=== PATIENT | female | born 1970 | race Caucasian/White ===

== ENCOUNTER 2024-10-27 11:58 | Emergency (ER) | payer MEDICAID, SELFPAY ==
[2024-10-27 12:11] VITALS: PULSE 78; RESP 18; O2SAT 98
[2024-10-27 12:19] VITALS: BP 116/76; PULSE 75; RESP 18; TEMP 36.8; O2SAT 100; BMI 24.3
--- NOTE | 2024-10-27 12:20 | EKG_ITS ---
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
--- NOTE | 2024-10-27 12:20 | XR_ITS ---
Examination: PA lateral chest 2 views TECHNIQUE: Upright PA lateral chest 2 views Exam date and time: October 27, 2024 1245 hours INDICATIONS: Shortness breath coughing today. FINDINGS: Normal heart size. Lungs are clear. The osseous structures are intact IMPRESSION: No active disease
--- NOTE | 2024-10-27 12:20 | PD.EDCHEST ---
ED Chest Pain RME/HPI General Stated Complaint: ANXIETY Time Seen by Provider: 10/27/24 12:40 Source: patient Arrival date/time: 10/27/24 11:58 53-year-old female with no known medical history presents to the emergency room with a chief complaint of 10 out of 10 sternal chest pain that does not radiate x 3 hours. Mode of arrival: ambulatory Limitations: no limitations Related Data Home Medications ?Medication ?Instructions ?Recorded ?Confirmed albuterol sulfate 90 mcg/actuation 2 puff inhalation Q6H PRN 08/11/20 08/11/20 aerosol inhaler Shortness Of Breath Or Wheezing atorvastatin 20 mg tablet 20 mg PO QDAY 08/11/20 08/11/20 baclofen 10 mg tablet 10 mg PO BID 08/11/20 08/11/20 loratadine 10 mg tablet 10 mg PO QDAY PRN Allergic Symptoms 08/11/20 08/11/20 meloxicam 15 mg tablet 15 mg PO DAILY 08/11/20 08/11/20 omeprazole 20 mg capsule,delayed 20 mg PO QDAY 08/11/20 08/11/20 release sertraline 50 mg tablet 50 mg PO QDAY 08/11/20 08/11/20 umeclidinium 62.5 mcg-vilanterol 1 inh inhalation QDAY 08/11/20 08/11/20 25 mcg/actuation powdr for inhalation (Anoro Ellipta) Previous Rx's ?Medication ?Instructions ?Recorded benzonatate 200 mg capsule 200 mg PO BID PRN cough #30 caps 01/01/22 methylprednisolone 4 mg tablets in See Rx Instructions .Route 01/01/22 a dose pack (Medrol (Daryn)) .COMPLEX #21 tabs doxycycline hyclate 100 mg capsule 100 mg PO BID #20 caps 08/30/22 montelukast 10 mg tablet 10 mg PO QPM #30 tabs 08/30/22 prednisone 20 mg tablet See Taper PO QDAY #14 tabs 08/30/22 ibuprofen 600 mg tablet 600 mg PO Q8H PRN fever or pain 10/27/24 #20 tabs Allergies Allergy/AdvReac Type Severity Reaction Status Date / Time codeine Allergy Severe Swelling Verified 10/27/24 12:15 of Lip/Tongue/Throat Penicillins Allergy Severe Swelling Verified 10/27/24 12:15 of Lip/Tongue/Throat NOVACAINE Allergy Severe Swelling Uncoded 05/31/24 07:48 of Lip/Tongue/Throat Review of Systems Review of Systems Systems Reviewed: All systems reviewed, normal except as documented Constitutional Constitutional: Reports system reviewed and no additional complaints, except as documented, Denies fatigue, Denies fever(s), Denies headache(s) and Denies weakness Eyes Eyes: Reports system reviewed and no additional complaints, except as documented, Denies blurry vision and Denies change in vision ENT Ears, Nose, Mouth, and Throat: Reports system reviewed and no additional complaints, except as documented, Denies otalgia, Denies headache(s), Denies nasal congestion, Denies throat swelling and Denies vertigo Cardiovascular Cardiovascular: Reports system reviewed and no additional complaints, except as documented, Reports chest pain, Denies dyspnea, Denies dyspnea on exertion and Reports rapid heart rate Respiratory Respiratory: Reports system reviewed and no additional complaints, except as documented, Denies chest congestion, Denies cough, Denies dyspnea, Denies dyspnea on exertion and Denies wheezing Gastrointestinal Gastrointestinal: Reports system reviewed and no additional complaints, except as documented, Denies abdominal pain, Denies cramping, Denies nausea and Denies vomiting Genitourinary Genitourinary: Reports system reviewed and no additional complaints, except as documented Musculoskeletal Musculoskeletal: Reports system reviewed and no additional complaints, except as documented and Denies back pain Integumentary/Breasts Skin/Breast: Reports system reviewed and no additional complaints, except as documented and Denies wounds Neurologic Neurologic: Reports system reviewed and no additional complaints, except as documented, Denies confusion, Denies headache(s), Denies lack of coordination, Denies vertigo and Denies weakness Psychiatric Psychiatric: Reports system reviewed and no additional complaints, except as documented, Denies anxiety, Denies confusion, Denies depression, Denies paranoia, Denies suicidal ideation and Denies tactile hallucinations Endocrine Endocrine: Reports system reviewed and no additional complaints, except as documented and Denies fatigue Hematologic/Lymphatic Hematologic/Lymphatic: Reports system reviewed and no additional complaints, except as documented and Denies lymphadenopathy Allergic/Immunologic Allergic/Immunologic: Reports system reviewed and no additional complaints, except as documented, Denies throat swelling, Denies urticaria and Denies wheezing Past Medical History Past Medical History CARDIAC: Positive Cardiac Disorders and Hypercholesterolemia; Negative Congestive Heart Failure RESPIRATORY: Positive Asthma; Negative Chronic Obstructive Pulmonary Disease (COPD) GASTROINTESTINAL: Positive Ulcer GENITOURINARY: Negative Renal Disease REPRODUCTIVE: Positive Pelvic Inflammatory Disease ENDOCRINE: Negative Diabetes Mellitus Type 1 or Diabetes Mellitus Type 2 HEMATOLOGIC: Negative Sickle Cell Disease PSYCHO/SOCIAL: Positive Depression and Anxiety Surgical History SURGICAL: Positive Abdominal Surgery Social History SMOKING STATUS: Former smoker SUBSTANCE USE: does not use ED Exam General Limitations: Present no limitations General appearance: Present alert and in no apparent distress Head Head exam: Present atraumatic Eye Eye exam: Present normal appearance, PERRL and EOMI ENT ENT exam: Present normal exam, normal oropharynx and mucous membranes moist Neck Neck exam: Present normal inspection, full ROM and trachea midline Chest Chest inspection: Present normal inspection and symmetric chest wall rise Respiratory Respiratory exam: Present normal lung sounds bilaterally; Absent respiratory distress, wheezes, stridor, accessory muscle use or prolonged expiratory phase Cardiovascular Cardiovascular exam: Present regular rate, normal rhythm and normal heart sounds; Absent bradycardia, tachycardia or irregular rhythm Abdominal Exam Abdominal exam: Present soft and normal bowel sounds Extremities Exam Extremities exam: Present normal inspection and full ROM Back Exam Back exam: Present normal inspection and full ROM Neurological Exam Neurological exam: Present alert, oriented X3 and CN II-XII intact Psychiatric Psychiatric exam: Present normal affect and normal mood Skin Skin exam: Present warm, dry, intact and normal color Course Quality Measures none Orders Category Date Time Status EKG (ED ONLY) *Do not use* NOW Care 10/27/24 12:20 Completed EKG (ED Only) Stat Exams 10/27/24 12:20 Draft XR chest 2V Stat Exams 10/27/24 12:20 Completed B-Type Natriuretic Peptide Stat Lab 10/27/24 13:16 Completed CBC Stat Lab 10/27/24 13:16 Completed Comprehensive Metabolic Panel Stat Lab 10/27/24 13:16 Completed Drug Screen,Urine Stat Lab 10/27/24 13:44 Received Magnesium Stat Lab 10/27/24 13:16 Completed Troponin I Stat Lab 10/27/24 13:16 Completed Urinalysis Stat Lab 10/27/24 13:44 Completed Vital Signs Vital signs: Vital Signs Temperature 98.2 F 10/27/24 12:19 Pulse Rate 75 10/27/24 12:19 Respiratory Rate 18 10/27/24 12:19 Blood Pressure 116/76 10/27/24 12:19 Pulse Oximetry (%) 100 10/27/24 12:19 Oxygen Delivery Method Room Air 10/27/24 12:19 O2 saturation within normal limits Procedures -ED EKG Interpretation #1: Date of EK10/27/24 Time of EK:00 Rate: 78 Interpretation: Reviewed by me EKG Impression: Normal sinus rhythm Additional EKG comment: EKG shows normal sinus rhythm at [address] deviation Chest Pain MDM Narrative MDM Narrative:: 53-year-old female with no known medical history presents to the emergency room with a chief complaint of 10 out of 10 sternal chest pain that does not radiate x 3 hours. Clinically the patient appears nontoxic and in no apparent distress. The patient is not tachycardic not tachypneic afebrile and O2 saturation is 100 on room air Lung sounds are clear bilaterally the patient is complaining of 10 out of 10 sternal chest pain. Heart sounds are strong and regular S1 and S2 noted no murmurs. EKG shows normal sinus rhythm at [address] deviation. Chest x-ray was negative for any pneumonic infiltrates. Patient was discharged and educated to follow-up with primary care provider and return to the emergency room for any evidence of worsening signs or symptoms Patient data External records reviewed:: [facility] previous records Clinical information provided by:: patient Social determinants that could affect healthcare access:: none Patient has the following chronic illnesses:: No chronic illness How is presenting disease/condition affected by chronic disease/condition?: no chronic disease Evaluation data The following diagnostics were reviewed and interpreted by me:: lab results and radiology exam(s) Lab and/or radiology exams considered but not ordered:: Labs and radiology exams considered and ordered Interpretation Summary: Chest [id number]: Normal heart size. Lungs are clear. The osseous structures are intact IMPRESSION: No active disease Medications / Prescriptions Medications or Prescriptions considered but not ordered:: No medication given Medication administrations:: No medication given Consultations Consultation(s) initiated? (list below): No Diagnosis Chest Pain Differential Diagnosis: stable angina, atypical chest pain, st elevation myocardial infarction, costochondritis and chest pain Most likely diagnosis given after review of the tests above:: Costochondritis Admission Indicated Admission indicated?: not indicated Admission Request Was there a request for admission?: No Disposition Plan Disposition Plan: Discharge Discharge Attestation Discharge Attestation: The patient and all family members were given an opportunity to ask questions and understood the discharge instructions. Discharge instructions specifically effects, indications for sooner follow up or return to the emergency department, and the expected course of current diagnosis. Patient condition: Stable Discharge Plan Plan Patient Disposition: HOME (Self Care) Disposition Comment: Stable Prescriptions/Referrals Prescriptions/Med Rec: New ibuprofen 600 mg tablet 600 mg PO Q8H PRN (Reason: fever or pain) Qty: 20 0RF No Action atorvastatin 20 mg Tablet 20 mg PO QDAY meloxicam 15 mg Tablet 15 mg PO DAILY baclofen 10 mg Tablet 10 mg PO BID omeprazole 20 mg Capsule,Delayed Release(Dr/Ec) 20 mg PO QDAY albuterol sulfate 90 mcg/actuation Hfa Aerosol Inhaler 2 puff INHALATION Q6H PRN (Reason: Shortness Of Breath Or Wheezing) sertraline 50 mg Tablet 50 mg PO QDAY loratadine 10 mg Tablet 10 mg PO QDAY PRN (Reason: Allergic Symptoms) Anoro Ellipta 62.5-25 mcg/actuation Blister With Device 1 inh INHALATION QDAY benzonatate 200 mg capsule 200 mg PO BID PRN (Reason: cough) Qty: 30 0RF methylprednisolone [Medrol (Daryn)] 4 mg tablets,dose pack See Rx Instructions .Route .COMPLEX Qty: 21 0RF Rx Instructions: 1 dose pack as directed doxycycline hyclate 100 mg capsule 100 mg PO BID Qty: 20 0RF montelukast 10 mg tablet 10 mg PO QPM Qty: 30 0RF prednisone 20 mg tablet See Taper PO QDAY Qty: 14 0RF Taper: Prednisone Taper 20 mg DAILY for 2 Days and 0 Hour 10 mg DAILY for 2 Days and 0 Hour 5 mg DAILY for 7 Days and 0 Hour Referrals: Sarmad Torres MD [Primary Care Provider] - In 1 week Problem List Clinical Impression: Costochondritis Patient/Caregiver Discharge Instructions Education Materials: ED Chest Wall Pain, Costochondritis Additional Instructions: Please follow-up with your primary care provider in the next 24 to 48 hours. The chest pain that you are having is not cardiac in nature. Your EKG was within normal limits. Your blood work was within normal limits. Please follow-up with your primary care provider and return to the emergency room for any evidence of worsening signs or symptoms Print Language: Macedonian Stand Alone Forms: Damaris Award Info., Patient Portal Info Letter PA/JORI Supervising Physician CARMEN/JORI Supervising Physician: Dr. Redmond
[2024-10-27 13:35] LABS: Basophils % (Auto) 0 % (0-2.5); Eosinophils # (Auto) 0.1 Thou/mm3 (0.0-0.5); Eosinophils % (Auto) 2 % (0-10); Hematocrit 41.5 % (36.0-46.0); Hemoglobin 13.7 g/dL (12.0-16.0); Immature Granulocytes % (Auto) 0 % (0-0); Immature Granulocytes Auto 0.01 Thou/mm3 (0.00-0.00); Lymphocytes # (Auto) 2.5 Thou/mm3 (1.0-4.8); Lymphocytes % (Auto) 28 % (10-50); Mean Corpuscular Volume 91 fL (80-100); Monocytes # (Auto) 0.6 Thou/mm3 (0.0-0.8); Monocytes % (Auto) 7 % (0-12); Neutrophils # (Auto) 5.6 Thou/mm3 (1.8-7.7); Neutrophils % (Auto) 63 % (37-80); Nucleated Red Blood Cell % 0 /100 WBC (0); Platelet Count 436 Thou/mm3 (140-440); Red Blood Count 4.57 Miln/mm3 (4.00-5.20); White Blood Count 8.9 Thou/mm3 (3.6-11.0)
[2024-10-27 13:48] LABS: Collection Type, Urine Clean Catch; RBC,Urine 0 /hpf (0-3); Squamous Epithelial Cell,Urine 0 /hpf (0-5)
[2024-10-27 13:57] LABS: B-Type Natriuretic Peptide < 20 pg/mL (0-100)
[2024-10-27 13:58] LABS: Anion Gap 8 (7-16); BUN/Creatinine Ratio 16 Ratio (12-20); Blood Urea Nitrogen 16 mg/dL (9-23); Calcium 9.7 mg/dL (8.3-10.6); Chloride 105 mMol/L (98-107); Estimated Creatinine Clearance 56.8 mL/min (>60); Glucose 94 mg/dL (74-106); Magnesium 2.1 mg/dL (1.6-2.6); Osmolality,Calculated 280 (275-295); Potassium 4.1 mMol/L (3.4-5.1); Sodium 140 mMol/L (136-145); eGFR > 60 See Note
[2024-10-27 13:59] LABS: Alanine Aminotransferase 21 U/L (10-49); Albumin, Serum 4.6 gm/dL (3.5-5.0); Albumin/Globulin Ratio 1.8 (1.2-2.2); Alkaline Phosphatase 127 U/L (46-116); Aspartate Amino Transferase 22 U/L (0-34); Bilirubin,Total 0.4 mg/dL (0.3-1.2); Calcium (Corrected) 9.7 mg/dL (8.5-10.1); Globulin 2.6 gm/dL (2.3-3.5); Total Protein 7.2 gm/dL (5.7-8.2); Troponin I < 0.002 ng/mL (0.0-0.045)
[2024-10-27 14:06] LABS: Bilirubin,Urine Negative (Negative); Blood,Urine Negative (Negative); Clarity,Urine Clear (Clear/Hazy); Color,Urine Colorless (Lt Yel-Yel); Glucose, Urine Negative (Negative); Ketones,Urine Negative (Negative); Leukocyte Esterase,Urine Negative (Negative); Nitrite,Urine Negative (Negative); PH,Urine 6.5 (5.0-7.0); Protein,Urine Negative (Neg - Trace); Specific Gravity,Urine 1.005 (1.001-1.035); Urobilinogen,Urine Negative mg/dL (0.0-1.0); WBC,Urine < 1 /hpf (0-5)
[2024-10-27 14:46] LABS: Amphetamine/Methamp Scrn,U Negative (Negative); Barbiturate Screen,Urine Negative (Negative); Benzodiazepines Screen,Urine Negative (Negative); Benzoylecgonine Screen, Ur Negative (Negative); Fentanyl Screen,Urine Negative (Negative); Opiate Screen,Urine Negative (Negative); THC Screen,Urine Negative (Negative)
== END 2024-10-27 14:36 | disposition home or self-care (01) ==
PROVIDERS: Nurse Practitioner Family; Emergency Provider Emergency Medicine; PCP Family Medicine
DX: M94.0 Chondrocostal junction syndrome [Tietze] (principal); R94.31 Abnormal electrocardiogram [ECG] [EKG]; E78.00 Pure hypercholesterolemia, unspecified
CPT/HCPCS: 36415; 71046; 80053; 80307; 81001; 83735; 83880; 84484; 85025; 93005; 99283

== ENCOUNTER 2025-04-02 11:26 | Emergency (ER) | payer MEDICAID, SELFPAY ==
--- NOTE | 2025-04-02 11:32 | EKG_ITS ---
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
[2025-04-02 11:36] VITALS: BP 102/64; PULSE 99; RESP 18; TEMP 36.5; O2SAT 99; BMI 25.7
--- NOTE | 2025-04-02 12:08 | XR_ITS ---
Examination: PA lateral chest 2 views TECHNIQUE: Upright PA lateral chest 2 views INDICATIONS: Chest pain shortness of breath beginning 3 days ago. FINDINGS: Normal heart size No pneumonia or pulmonary edema. The osseous structures are intact Probable fat pad at the left cardiac apex IMPRESSION: No pneumonia or pulmonary edema
--- NOTE | 2025-04-02 12:08 | PD.EDRME ---
Rapid Medical Screening Exam RME Arrival date/time: 04/02/25 11:26 54-year-old female with a history of hyperlipidemia presents to the emergency room with a chief complaint of shortness of breath and 10 out of 10 sternal chest pain x 2 days I have greeted and performed a focused initial assessment of this patient. A comprehensive ED assessment and evaluation of the patient, analysis of all test results, and completion of the medical decision making process will be conducted by additional ED providers. Chief Complaint: Shortness of Breath/Dyspnea Time Seen by Provider: 04/02/25 11:46 Vital signs: Vital Signs Temperature 97.7 F 04/02/25 11:36 Pulse Rate 99 04/02/25 11:36 Respiratory Rate 18 04/02/25 11:36 Blood Pressure 102/64 04/02/25 11:36 Pulse Oximetry (%) 99 04/02/25 11:36 Oxygen Delivery Method Room Air 04/02/25 11:36 Vital signs reviewed by provider: Yes
[2025-04-02 12:44] LABS: Collection Type, Urine Clean Catch
[2025-04-02 12:48] LABS: Basophils # (Auto) 0.0 Thou/mm3 (0.0-0.2); Basophils % (Auto) 1 % (0-2.5); Eosinophils # (Auto) 0.2 Thou/mm3 (0.0-0.5); Eosinophils % (Auto) 3 % (0-10); Hematocrit 40.5 % (36.0-46.0); Hemoglobin 13.5 g/dL (12.0-16.0); Immature Granulocytes Auto 0.02 Thou/mm3 (0.00-0.00); Lymphocytes # (Auto) 2.1 Thou/mm3 (1.0-4.8); Lymphocytes % (Auto) 29 % (10-50); Mean Corpuscular HGB Conc 33.3 g/dl (31.0-37.0); Mean Corpuscular Hemoglobin 30.6 pg (25.0-35.0); Mean Corpuscular Volume 92 fL (80-100); Monocytes # (Auto) 0.5 Thou/mm3 (0.0-0.8); Monocytes % (Auto) 6 % (0-12); Neutrophils # (Auto) 4.5 Thou/mm3 (1.8-7.7); Neutrophils % (Auto) 61 % (37-80); Nucleated Red Blood Cell # 0.00 Thou/mm3 (0.00-0.00); Nucleated Red Blood Cell % 0 /100 WBC (0); Platelet Count 393 Thou/mm3 (140-440); RDW Standard Deviation 41.6 fL (36.4-46.3); Red Blood Count 4.41 Miln/mm3 (4.00-5.20); White Blood Count 7.3 Thou/mm3 (3.6-11.0)
[2025-04-02 12:51] LABS: Bacteria,Urine Rare; Bilirubin,Urine Negative (Negative); Blood,Urine Negative (Negative); Clarity,Urine Clear (Clear/Hazy); Color,Urine Lt-Yellow (Lt Yel-Yel); Glucose, Urine Negative (Negative); Ketones,Urine Negative (Negative); Leukocyte Esterase,Urine Negative (Negative); Nitrite,Urine Negative (Negative); PH,Urine 6.5 (5.0-7.0); Protein,Urine Negative (Neg - Trace); RBC,Urine 2 /hpf (0-3); Specific Gravity,Urine 1.023 (1.001-1.035); Squamous Epithelial Cell,Urine 1 /hpf (0-5); Urobilinogen,Urine Negative mg/dL (0.0-1.0); WBC,Urine 2 /hpf (0-5)
[2025-04-02 13:01] LABS: INR 1.0 (0.9-1.3); Partial Thromboplastin Time 25.0 Seconds (22.0-36.0); Prothrombin Time 10.9 Seconds (9.0-12.2)
[2025-04-02 13:06] LABS: Alanine Aminotransferase 20 U/L (10-49); Albumin, Serum 4.3 gm/dL (3.5-5.0); Albumin/Globulin Ratio 2.0 (1.2-2.2); Alkaline Phosphatase 123 U/L (46-116); Anion Gap 10 (7-16); Aspartate Amino Transferase 17 U/L (0-34); BUN/Creatinine Ratio 15 Ratio (12-20); Bilirubin,Total 0.3 mg/dL (0.3-1.2); Blood Urea Nitrogen 15 mg/dL (9-23); Calcium 9.2 mg/dL (8.3-10.6); Calcium (Corrected) 9.2 mg/dL (8.5-10.1); Carbon Dioxide 28.0 mMol/L (20.0-31.0); Chloride 106 mMol/L (98-107); Creatinine (Component) 1.0 mg/dL (0.6-1.3); Estimated Creatinine Clearance 61.7 mL/min (>60); Globulin 2.2 gm/dL (2.3-3.5); Glucose 118 mg/dL (74-106); Magnesium 2.1 mg/dL (1.6-2.6); Osmolality,Calculated 288 (275-295); Potassium 3.9 mMol/L (3.4-5.1); Sodium 144 mMol/L (136-145); Total Protein 6.5 gm/dL (5.7-8.2); Troponin I < 0.002 ng/mL (0.0-0.045); eGFR > 60 See Note
[2025-04-02 13:10] LABS: B-Type Natriuretic Peptide < 20 pg/mL (0-100)
--- NOTE | 2025-04-02 15:57 | EDNOTE_ITS ---
<Statement entered by Munira Hester MD - 04/10/25 06:24> As co-signing physician, I was present and available for consult prn. I concur with the plan and care as documented by the midlevel provider. ED SOB =RME/HPI General Chief Complaint: Shortness of Breath/Dyspnea Stated Complaint: SOB,asthma, chest pain X 2 days Time Seen by Provider: 04/02/25 11:46 Source: patient Arrival date/time: 04/02/25 11:26 54-year-old female with a history of hyperlipidemia presents to the emergency room with a chief complaint of shortness of breath and 10 out of 10 sternal chest pain x 2 days Mode of arrival: ambulatory Limitations: no limitations RME / HPI RME / HPI Narrative: 04/02/25 11:26 54-year-old female with a history of hyperlipidemia presents to the emergency room with a chief complaint of shortness of breath and 10 out of 10 sternal chest pain x 2 days I have greeted and performed a focused initial assessment of this patient. A comprehensive ED assessment and evaluation of the patient, analysis of all test results, and completion of the medical decision making process will be conducted by additional ED providers. Related Data Home Medications ?Medication ?Instructions ?Recorded ?Confirmed albuterol sulfate 90 mcg/actuation 2 puff inhalation Q 6H PRN 08/11/20 08/11/20 aerosol inhaler Shortness Of Breath Or Wheez ing atorvastatin 20 mg tablet 20 mg PO QDAY 08/11/2008/11 baclofen 10 mg tablet 10 mg PO BID 08/11/20 loratadine 10 mg tablet 10 mg PO QDAY PRN Allergic S ymptoms 08/11/20 08/11/20 meloxicam 15 mg tablet 15 mg PO DAILY 08/11/2007/26 omeprazole 20 mg capsule,delayed 20 mg PO QDAY 0 08/11/20 release sertraline 50 mg tablet 50 mg PO QDAY 08/11/2008/11 umeclidinium 62.5 mcg-vilanterol 1 inh inhalation QDAY 08/11/20 08/11/20 25 mcg/actuation powdr for inhalation (Anoro Ellipta) Previous Rx's ?Medication ?Instructions ?Recorded benzonatate 200 mg capsule 200 mg PO BID PRN cough #30 caps 01/01/22 methylprednisolone 4 mg tablets in See Rx Instructions .Route 01/01/22 a dose pack (Medrol (Daryn)) .COMPLEX #21 tabs doxycycline hyclate 100 mg capsule 100 mg PO BID #20 c aps 08/30/22 montelukast 10 mg tablet 10 mg PO QPM #30 tabs prednisone 20 mg tablet See Taper PO QDAY #14 tabs 0 08/30/22 ibuprofen 600 mg tablet 600 mg PO Q8H PRN fever or p ain 10/27/24 #20 tabs Allergies Allergy/AdvReac Type Severity Reaction Status Date / Time Penicillins Allergy Severe Swelling Verified 04/02/25 15:56 of Lip/Tongue/Throat NOVACAINE Allergy Severe Swelling Uncoded 04/02/25 15:56 of Lip/Tongue/Throat Review of Systems Review of Systems Systems Reviewed: All systems reviewed, normal except as documented Constitutional Constitutional: Reports system reviewed and no additional complaints, except as documented, Denies fatigue, Denies fever(s), Denies headache(s) and Denies weakness Eyes Eyes: Reports system reviewed and no additional complaints, except as documented, Denies blurry vision and Denies change in vision ENT Ears, Nose, Mouth, and Throat: Reports system reviewed and no additional complaints, except as documented, Denies otalgia, Denies headache(s), Denies nasal congestion, Denies throat swelling and Denies vertigo Cardiovascular Cardiovascular: Reports system reviewed and no additional complaints, except as documented, Reports chest pain, Reports dyspnea and Denies dyspnea on exertion Respiratory Respiratory: Reports system reviewed and no additional complaints, except as documented, Denies chest congestion, Denies cough, Reports dyspnea, Denies dyspnea on exertion and Denies wheezing Gastrointestinal Gastrointestinal: Reports system reviewed and no additional complaints, except as documented, Denies abdominal pain, Denies cramping, Denies nausea and Denies vomiting Genitourinary Genitourinary: Reports system reviewed and no additional complaints, except as documented Musculoskeletal Musculoskeletal: Reports system reviewed and no additional complaints, except as documented and Denies back pain Integumentary/Breasts Skin/Breast: Reports system reviewed and no additional complaints, except as documented and Denies wounds Neurologic Neurologic: Reports system reviewed and no additional complaints, except as documented, Denies confusion, Denies headache(s), Denies lack of coordination, Denies vertigo and Denies weakness Psychiatric Psychiatric: Reports system reviewed and no additional complaints, except as documented, Denies anxiety, Denies confusion, Denies depression, Denies paranoia, Denies suicidal ideation and Denies tactile hallucinations Endocrine Endocrine: Reports system reviewed and no additional complaints, except as documented and Denies fatigue Hematologic/Lymphatic Hematologic/Lymphatic: Reports system reviewed and no additional complaints, except as documented and Denies lymphadenopathy Allergic/Immunologic Allergic/Immunologic: Reports system reviewed and no additional complaints, except as documented, Denies throat swelling, Denies urticaria and Denies wheezing Past Medical History Past Medical History CARDIAC: Positive Cardiac Disorders and Hypercholesterolemia; Negative Congestive Heart Failure RESPIRATORY: Positive Asthma; Negative Chronic Obstructive Pulmonary Disease (COPD) GASTROINTESTINAL: Positive Ulcer GENITOURINARY: Negative Renal Disease REPRODUCTIVE: Positive Pelvic Inflammatory Disease ENDOCRINE: Negative Diabetes Mellitus Type 1 or Diabetes Mellitus Type 2 HEMATOLOGIC: Negative Sickle Cell Disease PSYCHO/SOCIAL: Positive Depression and Anxiety Surgical History SURGICAL: Positive Abdominal Surgery Social History SMOKING STATUS: Former smoker SUBSTANCE USE: does not use ED Exam General Limitations: Present no limitations General appearance: Present alert and in no apparent distress Head Head exam: Present atraumatic Eye Eye exam: Present normal appearance, PERRL and EOMI ENT ENT exam: Present normal exam, normal oropharynx and mucous membranes moist Neck Neck exam: Present normal inspection, full ROM and trachea midline Chest Chest inspection: Present normal inspection and symmetric chest wall rise Respiratory Respiratory exam: Present normal lung sounds bilaterally; Absent respiratory distress, wheezes, stridor, accessory muscle use or prolonged expiratory phase Cardiovascular Cardiovascular exam: Present regular rate, normal rhythm, normal heart sounds, +S1 and +S2; Absent tachycardia or irregular rhythm Abdominal Exam Abdominal exam: Present soft and normal bowel sounds Extremities Exam Extremities exam: Present normal inspection and full ROM Back Exam Back exam: Present normal inspection and full ROM Neurological Exam Neurological exam: Present alert, oriented X3 and CN II-XII intact Psychiatric Psychiatric exam: Present normal affect and normal mood Skin Skin exam: Present warm, dry, intact and normal color Course Quality Measures none Orders Category Date Time Status EKG (ED ONLY) *Do not use* NOW Care 04/02/25 11:32 Completed EKG (ED Only) Stat Exams 04/02/25 11:32 Draft XR chest 2V Stat Exams 04/02/25 12:08 Completed B-Type Natriuretic Peptide Stat Lab 04/02/25 12:29 Completed CBC Stat Lab 04/02/25 12:29 Completed Comprehensive Metabolic Panel Stat Lab 04/02/25 12:29 Completed Magnesium Stat Lab 04/02/25 12:29 Completed Partial Thromboplastin Time Stat Lab 04/02/25 12:29 Completed Prothrombin Time with INR Stat Lab 04/02/25 12:29 Completed Troponin I Stat Lab 04/02/25 12:29 Completed Urinalysis Stat Lab 04/02/25 12:13 Completed HYDROcodone*/APAP 5/325 [Starr 5/325] Med 04/02/25 15:54 Discontinued 1 tab PO X1 ONE Vital Signs Vital signs: Vital Signs Temperature 97.7 F 04/02/25 11:36 Pulse Rate 99 04/02/25 11:36 Respiratory Rate 18 04/02/25 11:36 Blood Pressure 102/64 04/02/25 11:36 Pulse Oximetry (%) 99 04/02/25 11:36 Oxygen Delivery Method Room Air 04/02/25 11:36 PROCEDURES: EKG Interpretation #1: Date of EK04/02/25 Rate: 93 Interpretation: Reviewed by me EKG Impression: Normal sinus rhythm Shortness of Breath / Dyspnea MDM Narrative MDM Narrative:: 54-year-old female with a history of hyperlipidemia presents to the emergency room with a chief complaint of shortness of breath and 10 out of 10 sternal chest pain x 2 days Patient is hemodynamically stable and in no apparent distress Physical examination shows clear bilateral lung sounds there is no wheezing stridor or any abnormal breath sounds. The patient also is complaining of sternal chest pain. The patient has a strong and regular rhythm S1 and S2 noted. EKG was completed and shows normal sinus rhythm at [address] d eviation Chest x-ray was negative for any acute findings or any pneumonic infiltrates During my reevaluation patient states she feels a lot better and is ready for discharge. Patient was discharged and educated to follow-up with primary care provider in the next 24 to 48 hours and return to the emergency room for any evidence of worsening signs or symptoms Patient data External records reviewed:: [facility] previous records Clinical information provided by:: patient Social determinants that could affect healthcare access:: none Patient has the following chronic illnesses:: Asthma How is presenting disease/condition affected by chronic disease/condition?: exacerbated by Evaluation data The following diagnostics were reviewed and interpreted by me:: lab results and radiology exam(s) Lab and/or radiology exams considered but not ordered:: Lab results and radiology exams considered and ordered Interpretation Summary: Chest [id number]: Normal heart size No pneumonia or pulmonary edema. The osseous structures are intact Probable fat pad at the left cardiac apex IMPRESSION: No pneumonia or pulmonary edema Medications / Prescriptions Medications or Prescriptions considered but not ordered:: Medication given Medication administrations:: Medication Administration History Discontinued Medications Hydrocodone Bitart/Acetaminophen (Hydrocodone/Apap 5/325 Tablet) 1 tab PO X1 ONE Stop: 04/02/25 15:55 Last Admin: 04/02/25 15:59 Dose: 1 tab Documented By: OA Medication given Consultations Consultation(s) initiated? (list below): No Diagnosis Shortness of Breath Differential Diagnosis: community acquired pneumonia, asthma with exacerbation and other (Chest pain) Most likely diagnosis given after review of the tests above:: Asthma exacerbation Admission Indicated Admission indicated?: not indicated Admission Request Was there a request for admission?: No Disposition Plan Disposition Plan: Discharge Discharge Attestation Discharge Attestation: The patient and all family members were given an opportunity to ask questions and understood the discharge instructions. Discharge instructions specifically effects, indications for sooner follow up or return to the emergency department, and the expected course of current diagnosis. Patient condition: Stable Discharge Plan Plan Patient Disposition: HOME (Self Care) Discharge Disposition comment: Stable Prescriptions/Referrals Prescriptions/Med Rec: No Action atorvastatin 20 mg Tablet 20 mg PO QDAY meloxicam 15 mg Tablet 15 mg PO DAILY baclofen 10 mg Tablet 10 mg PO BID omeprazole 20 mg Capsule,Delayed Release(Dr/Ec) 20 mg PO QDAY albuterol sulfate 90 mcg/actuation Hfa Aerosol Inhaler 2 puff INHALATION Q6H PRN (Reason: Shortness Of Breath Or Wheezing) sertraline 50 mg Tablet 50 mg PO QDAY loratadine 10 mg Tablet 10 mg PO QDAY PRN (Reason: Allergic Symptoms) Anoro Ellipta 62.5-25 mcg/actuation Blister With Device 1 inh INHALATION QDAY benzonatate 200 mg capsule 200 mg PO BID PRN (Reason: cough) Qty: 30 0RF methylprednisolone [Medrol (Darny)] 4 mg tablets,dose pack See Rx Instructions .Route .COMPLEX Qty: 21 0RF Rx Instructions: 1 dose pack as directed doxycycline hyclate 100 mg capsule 100 mg PO BID Qty: 20 0RF montelukast 10 mg tablet 10 mg PO QPM Qty: 30 0RF prednisone 20 mg tablet See Taper PO QDAY Qty: 14 0RF Taper: Prednisone Taper 20 mg DAILY for 2 Days and 0 Hour 10 mg DAILY for 2 Days and 0 Hour 5 mg DAILY for 7 Days and 0 Hour ibuprofen 600 mg tablet 600 mg PO Q8H PRN (Reason: fever or pain) Qty: 20 0RF Referrals: Hany Denson MD [Primary Care Provider] - In 1 week Problem List Clinical Impression: Asthma with exacerbation, Chest pain Patient/Caregiver Discharge Instructions Education Materials: ED Asthma, Acute (Adult), ED Chest Pain, Noncardiac Additional Instructions: Please follow-up with your primary care provider in the next 24 to 48 hours Your cardiac examination was within normal limits. Your chest x-ray was negative for any pneumonia For any evidence of worsening signs or symptoms return to emergency room immediately Print Language: Kyrgyz Stand Alone Forms: Damaris Award Info., Patient Portal Info Letter PA/JORI Supervising Physician CARMEN/JORI Supervising Physician: Dr. HESTER
[2025-04-02] MEDS: HYDROcodone/APAP 5/325 TABLET 1 TAB PO (15:59)
== END 2025-04-02 16:11 | disposition home or self-care (01) ==
PROVIDERS: Nurse Practitioner Family; Emergency Provider Emergency Medicine; PCP Family Medicine
DX: J45.901 Unspecified asthma with (acute) exacerbation (principal); E78.00 Pure hypercholesterolemia, unspecified; Z87.891 Personal history of nicotine dependence
CPT/HCPCS: 36415; 71046; 80053; 81001; 83735; 83880; 84484; 85025; 85610; 85730; 93005; 99283; A9270